=== PATIENT | female | born 2000 | race Two or more races ===

== ENCOUNTER 2021-01-03 15:58 | Emergency (ER) | payer SELFPAY ==
[~2021-01-03] VITALS: Ht 160 cm; Wt 70.5 kg
[2021-01-03 16:02] VITALS: BP 151/98; Ht 160 cm; Wt 70.5 kg
[2021-01-03 16:49] LABS: BASOPHILS 0.4 % (0-2); EOSINOPHILS 0.4 % (0-7); HEMATOCRIT 34.9 % (36.0-48.0); HEMOGLOBIN 11.5 g/dL (12-16); LYMPHOCYTES 14.5 % (15-50); MCH 26.7 pg (26.0-34.0); MCHC 32.9 g/dL (31.0-37.0); MCV 81.1 fL (80.0-100.0); MEAN PLATELET VOLUME 7.6 fL (7.4-10.4); MONOCYTES 4.6 % (2-11); NEUTROPHILS 80.1 % (40-80); PLATELET COUNT 327 10x3/uL (130-400); RDW 13.6 % (11.5-14.5); WBC 14.7 10x3/uL (4.8-10.8)
[2021-01-03 16:50] LABS: BILIRUBIN NEGATIVE (NEGATIVE); KETONE NEGATIVE (NEGATIVE); NITRITE NEGATIVE (NEGATIVE); UROBILINOGEN NORMAL mg/dL (< 2)
--- NOTE | 2021-01-03 16:50 | NUR ---
MONITORING STRIP DONE FROM 1629 TO 1650. FHR BASELINE NOTED TO BE 150 WITH MODERATE VARIABILITY, OCCASIONAL MILD VARIABLE. MOVEMENT NOTED AT BEDSIDE. NO CONTRACTIONS SEEN ON TOCO OR PALPATED AT BEDSIDE. 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 ABD SOFT TO PALPATION THROUGHOUT MONITORING.
[2021-01-03 16:55] LABS: BACTERIA MODERATE HPF (NONE SEEN); SQUAMOUS EPITHELIAL 0-5 HPF (0-4)
[2021-01-03 16:59] LABS: CALC OSMOLALITY 272 mosm/kg (275-300); CALCIUM 8.8 mg/dL (8.5-10.1); CARBON DIOXIDE 24.2 mmol/L (21.0-32.0); CHLORIDE - SERUM 104 mmol/L (98-107); CREATININE - SERUM 0.4 mg/dL (0.6-1.3); GLUCOSE 81 mg/dL (74-106); POTASSIUM - SERUM 3.6 mmol/L (3.5-5.1); SODIUM 138 mmol/L (136-145); UREA NITROGEN 6 mg/dL (7-18); eGFR NON AFRICAN AMERICAN > 90 mL/min (90-120)
[2021-01-03 17:07] LABS: ALBUMIN 3.1 g/dL (3.4-5.0); ALKALINE PHOSPHATASE 81 U/L (30-120); ALT (SGPT) 18 U/L (10-68); AMYLASE - SERUM 60 U/L (25-115); LIPASE 61 U/L (73-393); PROTEIN - SERUM 7.4 g/dL (6.4-8.2); TROPONIN-I < 0.017 ng/mL (0.000-0.060)
[2021-01-03] MEDS ORDERED: MACROBID100 MG PO (17:31)
== END 2021-01-03 18:20 | disposition home or self-care (01) ==
LOC: D.ER 15:58
PROVIDERS: Family Medicine
DX: O23.42 Unspecified infection of urinary tract in pregnancy, second trimester (principal); R10.9 Unspecified abdominal pain; R19.7 Diarrhea, unspecified; Z3A.27 27 weeks gestation of pregnancy